=== PATIENT | male | born 1980 | race American Indian/Alaskan Native ===

== ENCOUNTER 2018-01-23 14:58 | Emergency (ER) | payer OTHER, SELFPAY ==
--- NOTE | 2018-01-23 16:17 | EDPHYS ---
Physician Documentation [facility] Name: Ron Ramesh Age: 37 yrs Sex: Male : 1980 Arrival Date: 01/23/2018 Time: 15:02 Bed 12 Private MD: ED Physician Mina Simental HPI: 01/23 16:14 This 37 yrs old Other Male presents to ER via Ambulatory with complaints of Redness of snw Eye. 16:14 The patient is experiencing redness, tearing, The patient sustained None. to the right snw eye, caused by an unknown mechanism. Onset: The symptoms/episode began/occurred suddenly, 2 day(s) ago, and became persistent. Duration: the symptoms are continuous. Aggravated by rubbing, Alleviated by nothing. Associated signs and symptoms: Pertinent positives: matting and itching. Patient does not utilize any form of vision correction. Severity of symptoms: At their worst the symptoms were moderate. The patient has not experienced similar symptoms in the past. It is unknown whether or not the patient has recently seen a physician. no fever, no pain, no injury. Historical: - Allergies: 15:29 No Known Allergies; aj - Home Meds: 15:29 None [Active]; aj - PMHx: 15:29 None; aj - PSHx: 15:29 None; aj - Immunization history:: Adult Immunizations up to date. - Social history:: Smoking status: Patient/guardian denies using tobacco. ROS: 16:13 Constitutional: Negative for fever, chills, and weight loss, ENT: Negative for injury, snw pain, and discharge, Neck: Negative for injury, pain, and swelling, Cardiovascular: Negative for chest pain, palpitations, and edema, Respiratory: Negative for shortness of breath, cough, wheezing, and pleuritic chest pain, Abdomen/GI: Negative for abdominal pain, nausea, vomiting, diarrhea, and constipation, Back: Negative for injury and pain, : Negative for injury, bleeding, discharge, and swelling, MS/Extremity: Negative for injury and deformity, Skin: Negative for injury, rash, and discoloration, Neuro: Negative for headache, weakness, numbness, tingling, and seizure. 16:13 Eyes: Positive for itching, redness, tearing, of the outer aspect of conjuctiva of right eye, iris of right eye and inner aspect of conjuctiva of right eye. Exam: 16:13 Constitutional: This is a well developed, well nourished patient who is awake, alert, snw and in no acute distress. Head/Face: Normocephalic, atraumatic. Eyes: Pupils equal round and reactive to light, extra-ocular motions intact. Lids and lashes normal. Conjunctiva and sclera are non-icteric, right injected. Cornea within normal limits. Periorbital areas with no swelling, redness, or edema. ENT: Nares patent. No nasal discharge, no septal abnormalities noted. Tympanic membranes are normal and external auditory canals are clear. Oropharynx with no redness, swelling, or masses, exudates, or evidence of obstruction, uvula midline. Mucous membranes moist. Neck: Trachea midline, no thyromegaly or masses palpated, and no cervical lymphadenopathy. Supple, full range of motion without nuchal rigidity, or vertebral point tenderness. No Meningismus. Chest/axilla: Normal chest wall appearance and motion. Nontender with no deformity. No lesions are appreciated. Cardiovascular: Regular rate and rhythm with a normal S1 and S2. No gallops, murmurs, or rubs. Normal PMI, no JVD. No pulse deficits. Respiratory: Lungs have equal breath sounds bilaterally, clear to auscultation and percussion. No rales, rhonchi or wheezes noted. No increased work of breathing, no retractions or nasal flaring. Abdomen/GI: Soft, non-tender, with normal bowel sounds. No distension or tympany. No guarding or rebound. No evidence of tenderness throughout. Back: No spinal tenderness. No costovertebral tenderness. Full range of motion. Skin: Warm, dry with normal turgor. Normal color with no rashes, no lesions, and no evidence of cellulitis. MS/ Extremity: Pulses equal, no cyanosis. Neurovascular intact. Full, normal range of motion. Neuro: Awake and alert, GCS 15, oriented to person, place, time, and situation. Cranial nerves II-XII grossly intact. Motor strength 5/5 in all extremities. Sensory grossly intact. Cerebellar exam normal. Normal gait. Vital Signs: 15:29 BP 142 / 87; Pulse 88; Resp 19; Temp 97.8; Pulse Ox 100% on R/A; Weight 64 kg; Height 5 aj ft. 5 in. (165.10 cm); 15:29 Body Mass Index 23.48 (64.00 kg, 165.10 cm) aj MDM: 16:12 Patient medically screened. snw 16:22 Data reviewed: vital signs, nurses notes. Data interpreted: Pulse oximetry: on room air snw is 100 %. Interpretation: normal. Counseling: I had a detailed discussion with the patient and/or guardian regarding: the historical points, exam findings, and any diagnostic results supporting the discharge/admit diagnosis, the presence of at least one elevated blood pressure reading (>120/80) during this emergency department visit, the need for outpatient follow up, to return to the emergency department if symptoms worsen or persist or if there are any questions or concerns that arise at home. Special discussion: I have referred the patient to see his PCP for further evaluation of high blood pressure. Based on the history and exam findings, there is no indication for further emergent testing or inpatient evaluation. I discussed with the patient/guardian the need to see the opthamologist for further evaluation of the symptoms, I discussed with the patient/guardian the need to see the primary care provider for further evaluation of the symptoms. Administered Medications: 16:37 Not Given (Other Intervention Used): Tobramycin Drops (0.3 %) 2 drops Ophthalmic once; ss to right inner canthus 16:40 Drug: Fospkqpk-Pobjbyvjz-Tlcjimpv 2 drops Route: Ophthalmic; Site: right eye; ss 16:48 Follow up: Response: Medication administered at discharge. ss Disposition: 01/23/18 16:16 Discharged to Home. Impression: Conjunctivitis. - Condition is Stable. - Discharge Instructions: Conjunctivitis (Viral and Bacterial), Hypertension. - Prescriptions for Vigamox 0.5 % Ophthalmic Drops - instill 1 drop by OPHTHALMIC route every 8 hours for 7 days; 5 milliliter. Zyrtec 10 mg Oral Tablet - take 1 tablet by ORAL route once daily As needed; 20 tablet. - Medication Reconciliation Form, Thank You Letter, Antibiotic Education, Prescription Opioid Use form. - Follow up: Private Physician; When: 2 - 3 days; Reason: Recheck today's complaints, Continuance of care, Re-evaluation by your physician. Addendum: 01/27/2018 12:41 Co-signature as Attending Physician, Mina payton s Signatures: Savita Thomson, RN RN Peyton Moody, AUTO BODY SHOP MANAGER-C AUTO BODY SHOP MANAGER-Csnw Ange Couch RN RN ss Starr, Gregory, MD MD
--- NOTE | 2018-01-23 16:17 | ER ---
Nurse's Notes [facility] Name: Ron Ramesh Age: 37 yrs Sex: Male : 1980 Arrival Date: 01/23/2018 Time: 15:02 Bed 12 Private MD: Diagnosis: Conjunctivitis Presentation: 01/23 15:28 Presenting complaint: Patient states: Redness and itching to right eye since yesterday. aj Green exudate noted to inner corner of eye. Transition of care: patient was not received from another setting of care. Onset of symptoms was January 22, 2018. Initial Sepsis Screen: Does the patient meet any 2 criteria? No. Patient's initial sepsis screen is negative. Does the patient have a suspected source of infection? No. Patient's initial sepsis screen is negative. Care prior to arrival: None. 15:28 Method Of Arrival: Ambulatory 15:28 Acuity: PRECIOUS 5 aj Triage Assessment: 15:29 General: Appears in no apparent distress. comfortable, Behavior is calm, cooperative, aj appropriate for age. Pain: Denies pain. EENT: Sclera/Cornea are reddened in outer aspect of conjuctiva of right eye, iris of right eye and inner aspect of conjuctiva of right eye. Neuro: Level of Consciousness is awake, alert, obeys commands, Oriented to person, place, time, situation. Respiratory: Airway is patent Respiratory effort is even, unlabored, Respiratory pattern is regular, symmetrical. Derm: Skin is intact, is healthy with good turgor, Skin is pink, warm \T\ dry. normal. Historical: - Allergies: 15:29 No Known Allergies; aj - Home Meds: 15:29 None [Active]; aj - PMHx: 15:29 None; aj - PSHx: 15:29 None; aj - Immunization history:: Adult Immunizations up to date. - Social history:: Smoking status: Patient/guardian denies using tobacco. Screenin:08 Abuse screen: Denies threats or abuse. Denies injuries from another. Nutritional ss screening: No deficits noted. Tuberculosis screening: Never had TB. Fall Risk None identified. Assessment: 16:08 General: Appears in no apparent distress. comfortable, Behavior is calm, cooperative. ss Pain: Complains of pain in right eye Pain currently is 4 out of 10 on a pain scale. Quality of pain is described as tender. Neuro: Level of Consciousness is awake, alert, obeys commands. Cardiovascular: Capillary refill < 3 seconds is brisk in bilateral fingers. Respiratory: Respiratory effort is even, unlabored. GI: Patient currently denies abdominal pain, diarrhea, nausea, vomiting. EENT: Sclera/Cornea are reddened in outer aspect of conjuctiva of right eye and inner aspect of conjuctiva of right eye Reports redness to R sclera that began 1 day ago. Eye lids were matted closed when waking up this morning. . Derm: Skin is intact, is healthy with good turgor, Skin is pink, warm \T\ dry. normal. Musculoskeletal: Circulation, motion, and sensation intact. Range of motion: intact in all extremities. Vital Signs: 15:29 BP 142 / 87; Pulse 88; Resp 19; Temp 97.8; Pulse Ox 100% on R/A; Weight 64 kg; Height 5 aj ft. 5 in. (165.10 cm); 15:29 Body Mass Index 23.48 (64.00 kg, 165.10 cm) aj ED Course: 15:02 Patient arrived in ED. as 15:29 Triage completed. aj 15:29 Arm band placed on left wrist. Patient placed in waiting room, Patient notified of wait aj time. 16:07 Peyton De La Cruz FNP-C is [facility]. snw 16:07 Mina Simental MD is Attending Physician. snw 16:08 Patient has correct armband on for positive identification. Bed in low position. Call ss light in reach. 16:08 No provider procedures requiring assistance completed. Patient did not have IV access ss during this emergency room visit. 16:30 Ange Couch RN is Primary Nurse. ss Administered Medications: 16:37 Not Given (Other Intervention Used): Tobramycin Drops (0.3 %) 2 drops Ophthalmic once; ss to right inner canthus 16:40 Drug: Wrpqwrcn-Mypwgkqyl-Ybyrulpy 2 drops Route: Ophthalmic; Site: right eye; ss 16:48 Follow up: Response: Medication administered at discharge. ss Outcome: 16:08 Discharged to home ambulatory. ss 16:08 Condition: good 16:08 Discharge instructions given to patient, Instructed on discharge instructions, follow up and referral plans. medication usage, Demonstrated understanding of instructions, follow-up care, medications, Prescriptions given X 2. 16:16 Discharge ordered by . miladys 16:47 Patient left the ED. ss Signatures: Savita Thomson, RN RN Peyton Moody, FLEET MAINTENANCE FOREMAN-C FLEET MAINTENANCE FOREMAN-Alfredow Alejandrina Parmar Shelby, CHITRA BUENROSTRO
[2018-01-23] MEDS ORDERED: NEO/POLY/DEX OPTH 5 ML BOT ONE (16:36)
== END 2018-01-23 16:47 | disposition home or self-care (01) ==
LOC: ER 14:58
DX: H10.9 Unspecified conjunctivitis (principal)
CPT/HCPCS: 99283